=== PATIENT | male | born 1950 | race Caucasian/White ===

== ENCOUNTER 2016-09-18 17:33 | Emergency (ER) | payer MEDICARE ==
[~2016-09-18] VITALS: Ht 167.6 cm; Wt 93.0 kg
[2016-09-18] MEDS ORDERED: LIDOCAINE 1% / SOD BICARB 8.4% 20 ML VIAL. IJ ONE (18:00)
[2016-09-18 19:32] VITALS: BP 191/98
--- NOTE | 2016-09-18 19:32 | PHYS DOC ---
Past Medical History Past Medical History: Other Additional Past Medical Histor: SEASONAL ALLERGIES Past Surgical History: No Surgical History Additional Information: Nonsmoker Alcohol Use: Rarely Drug Use: None Adult General Chief Complaint Chief Complaint: LACERATION/AVULSION HPI HPI Patient is a 66 year old male who presents with left index finger laceration at 1715. Patient was cutting wood with a chain saw when the saw kicked back and cut his finger. He has not taken any blood thinners. His tetanus immunization is up-to-date. His PCP is Dr. Whelan. Review of Systems Review of Systems Constitutional: Denies fever or chills. [] Musculoskeletal: Denies back pain or joint pain. Reports left index finger pain. Integument: Denies rash or skin lesions. Reports left index finger laceration. Neurologic: Denies focal weakness or sensory changes. [] Current Medications Current Medications Current Medications Medications (Trade) Dose Ordered Sig/Dorina Start Time Stop Time Status Last Admin Dose Admin Lidocaine/Sodium Bicarbonate (Buffered Lidocaine 1%) 20 ml 1X ONCE 09/18/16 18:00 09/18/16 18:01 DC 09/18/16 18:10 20 ML Allergies Allergies Allergies Coded Allergies Type Severity Reaction Last Updated Verified Penicillins Allergy Intermediate "RASH" 09/18/16 No Physical Exam Physical Exam Constitutional: Well developed, well nourished, no acute distress, non-toxic appearance. [] HENT: Normocephalic, atraumatic, oropharynx moist. [] Eyes: PERRLA, EOMI, conjunctiva normal, no discharge. [] Skin: Warm, dry, no erythema, no rash. There is a 2 cm laceration at the base of the left index finger. Extremities: Left index finger tenderness, ROM intact, no edema. Less than 2 second capillary refill distally. Light touch sensation intact distally. Full flexion and extension of the index finger. Neurologic: Alert and oriented X 3, normal motor function, normal sensory function, no focal deficits noted. [] Psychologic: Affect normal, judgement normal, mood normal. [] Current Patient Data Vital Signs Vital Signs Date Time Temp Pulse Resp B/P Pulse Ox O2 Delivery O2 Flow Rate FiO2 09/18/16 18:10 114 18 228/108 97 Room Air 09/18/16 17:38 98.6 98.6 EKG EKG [] Radiology/Procedures Radiology/Procedures Three-view x-ray of the left hand index finger were reviewed and interpreted by myself with Dr. Boggs. There is no fracture or dislocation. Course & Med Decision Making Course & Med Decision Making Pertinent Labs and Imaging studies reviewed. (See chart for details) Patient presents with a 2 cm laceration to the base of the left index finger, dorsal side.. The wound was anesthetized with 1% buffered lidocaine. The wound was explored for foreign bodies and none were identified. There was no tendon laceration. Dr. Boggs examined the patient and also did not identify a tendon laceration. The wound was cleaned using chlorhexidine scrub and copiously irrigated using normal saline. Wound edges were well approximated using 7 simple interrupted sutures using 5-0 nylon. The patient tolerated the procedure well and bleeding was controlled. A sterile dressing was applied. Dragon Disclaimer Dragon Disclaimer This electronic medical record was generated, in whole or in part, using a voice recognition dictation system. Departure Departure Impression: Primary Impression: Finger laceration Disposition: 01 HOME, SELF-CARE Condition: IMPROVED Referrals: UNKNOWN PCP NAME (PCP) Patient Instructions: Sutured Wound Care, [id number] Additional Instructions: Your wound was closed with nonabsorbable sutures. The sutures may get wet but please do not submerge the wound in water. Please clean the wound with soap and water only. Do not use peroxide or alcohol. Please keep your wound covered with antibiotic ointment and a bandage. Change the bandage at least twice daily. Please follow-up with your doctor in 10 days for suture removal. Return to emergency Department if you notice increased redness, swelling, yellow /green drainage from the wound, as these are signs of infection. Problem Qualifiers Primary Impression: Finger laceration Encounter type: initial encounter Qualified Code: S61.219A - Laceration without foreign body of unspecified finger without damage to nail, initial encounter EDWIGE AMARO Sep 18, 2016 19:32
--- NOTE | 2016-09-19 07:48 | RAD ---
Left index finger, 3 views, 09/18/2016: History: Chainsaw injury No acute fracture or dislocation is identified. There are mild degenerative changes at the interphalangeal joints. IMPRESSION: No acute bony abnormality is detected.
== END 2016-09-18 19:32 | disposition home or self-care (01) ==
LOC: ER 17:33
DX: S61.211A Laceration without foreign body of left index finger without damage to nail, initial encounter (principal); Z88.0 Allergy status to penicillin; W29.3XXA Contact with powered garden and outdoor hand tools and machinery, initial encounter; Y93.89 Activity, other specified; Y92.89 Other specified places as the place of occurrence of the external cause; Y99.8 Other external cause status
CPT/HCPCS: 12001; 73140; 99284